=== PATIENT | male | born 1975 | race African-American/Black ===

== ENCOUNTER 2020-09-13 06:31 | Emergency (ER) | payer MEDICAID ==
[~2020-09-13] VITALS: Ht 172.7 cm; Wt 72.0 kg
[2020-09-13] MEDS ORDERED: ACETAMINOPHEN 325MG TABLET PO ONE (07:00)
[2020-09-13 07:58] VITALS: BP 114/72
== END 2020-09-13 08:00 | disposition home or self-care (01) ==
LOC: ER 06:53
DX: M25.561 Pain in right knee (principal)
CPT/HCPCS: 73560; 99283